=== PATIENT | male | born 2000 | race Caucasian/White ===

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

== ENCOUNTER 2022-06-16 08:16 | Emergency (ER) | payer OTHER ==
[~2022-06-16] VITALS: Ht 180.3 cm; Wt 69.4 kg
[~2022-06-16 08:16] MED LIST: ADZENYS XR-OD12.5 MG PO
== END 2022-06-16 10:00 | disposition home or self-care (01) ==
LOC: ED 08:16
DX: S05.02XA Injury of conjunctiva and corneal abrasion without foreign body, left eye, initial encounter (principal); Z79.899 Other long term (current) drug therapy; W22.8XXA Striking against or struck by other objects, initial encounter; Y93.89 Activity, other specified; Y92.89 Other specified places as the place of occurrence of the external cause; Y99.8 Other external cause status